=== PATIENT | female | born 1980 | race Caucasian/White ===

== ENCOUNTER 2016-10-13 09:41 | Day surgery (SDC) | payer OTHER ==
[~2016-10-13] VITALS: Ht 162.6 cm; Wt 59.0 kg
[~2016-10-13 09:41] MED LIST: FLEXERIL10 MG PO; FLOVENT DISKUS1 DIS1 IH; MOTRIN600 MG PO; NAPROSYN500 MG PO; NO HOME MEDS; NORCO 5/3251 TABLET PO; ROBAXIN750 MG PO; SINGULAIR10 MG PO; SKELAXIN800 MG PO; ULTRAM50 MG PO; VENTOLIN HFA18 GM IH
[2016-10-13 10:27] VITALS: BP 111/63
[2016-10-13] MEDS ORDERED: HYDROCODON-ACE1 EAC7 PO (13:14)
[2016-10-13] MEDS ORDERED: COLACE100 MG PO (13:14)
[2016-10-13 15:07] VITALS: BP 94/58
[2016-10-13 16:10] VITALS: BP 102/65; BP 94/58
== END 2016-10-13 17:25 | disposition home or self-care (01) ==
LOC: SDC 09:41
DX: K35.80 Unspecified acute appendicitis (principal); K57.30 Diverticulosis of large intestine without perforation or abscess without bleeding; K66.0 Peritoneal adhesions (postprocedural) (postinfection); Z98.51 Tubal ligation status; G89.29 Other chronic pain; Z87.19 Personal history of other diseases of the digestive system; F17.200 Nicotine dependence, unspecified, uncomplicated
CPT/HCPCS: 88304; 88305; J0330; J1100; J1170; J2250; J2405; J2710; J2765; J3010; S0030

== ENCOUNTER → 2017-07-05 | Outpatient (CLI) | payer OTHER ==
[~2017-07-05] MED LIST changes: +COLACE100 MG PO; +HYDROCODON-ACE1 EAC7 PO
== END | disposition home or self-care (01) ==
LOC: NUC 08:23
DX: R10.31 Right lower quadrant pain (principal); K21.9 Gastro-esophageal reflux disease without esophagitis; R14.3 Flatulence; R11.2 Nausea with vomiting, unspecified
CPT/HCPCS: 78264; A9541

== ENCOUNTER 2017-07-25 10:41 | Emergency (ER) | payer OTHER ==
[~2017-07-25] VITALS: Ht 162.6 cm; Wt 60.5 kg
[2017-07-25 10:46] VITALS: BP 130/80
[2017-07-25] MEDS ORDERED: PERCOCET 5/31 TABLET PO (13:15)
== END 2017-07-25 13:39 | disposition home or self-care (01) ==
LOC: EME 10:41
DX: M54.5 Low back pain (principal); K21.9 Gastro-esophageal reflux disease without esophagitis
CPT/HCPCS: 72100; 99281; 99284

== ENCOUNTER 2017-12-15 13:53 | Emergency (ER) | payer OTHER ==
[~2017-12-15] VITALS: Ht 162.6 cm; Wt 61.1 kg
[~2017-12-15 13:53] MED LIST changes: +PERCOCET 5/31 TABLET PO
[2017-12-15] MEDS ORDERED: NAPROSYN500 MG PO (15:44)
[2017-12-15 16:02] VITALS: BP 135/76
== END 2017-12-15 16:02 | disposition home or self-care (01) ==
LOC: EME 13:53
DX: S83.92XA Sprain of unspecified site of left knee, initial encounter (principal); S80.02XA Contusion of left knee, initial encounter; W22.8XXA Striking against or struck by other objects, initial encounter; Y93.89 Activity, other specified
CPT/HCPCS: 73564; 99281; 99284